=== PATIENT | female | born 1990 | race Caucasian/White ===

== ENCOUNTER 2022-10-02 15:07 | Observation (INO) | payer OTHER, SELFPAY ==
[2022-10-02 15:23] VITALS: BP 122/70; PULSE 81; TEMP 36.3
[2022-10-02 15:53] LABS: Bilirubin Urine NEGATIVE (NEGATIVE); Blood Urine NEGATIVE (NEGATIVE); Clarity Urine CLEAR (CLEAR); Color Urine YELLOW (YELLOW); Glucose Urine UA NEGATIVE (NEGATIVE); Ketones Urine NEGATIVE (NEGATIVE); Leukocyte Esterase Urine TRACE (NEGATIVE); Nitrite Urine NEGATIVE (NEGATIVE); Protein Urine TRACE mg/dL (NEG/TRACE); Specific Gravity Urine 1.015 (1.005-1.025); Urobilinogen Urine 0.2 EU/dL (0.2-1.0); pH Urine 8.5 (5.0-9.0)
[2022-10-02 15:54] LABS: Urine Microscopic Indicated YES
[2022-10-02 16:06] LABS: Amorphous Sediment Urine FEW; Bacteria Urine TRACE #/HPF (NONE SEEN); Cast Seen? NONE SEEN #/LPF (NONE SEEN); Crystals Seen? None Seen #/HPF (None Seen); Mucus Urine NONE SEEN (NONE SEEN); RBC Urine 0-2 #/HPF (0-2); Squamous Epithelial Cell Urine FEW #/LPF (NONE/RARE); Urine Culture Indicated NO
--- NOTE | 2022-10-02 18:17 | PC.NURSE ---
Rima Dewitt in to see pt. SVE unchanged. d/c orders received. D/c instructions given to pt and . s/s of labor given. verbalizes understanding. d/c to home
== END 2022-10-02 17:30 | disposition home or self-care (01) ==
PROVIDERS: Admitting Provider Midwife; PCP Midwife; Visit Provider Midwife
DX: O47.9 False labor, unspecified (principal); O26.899 Other specified pregnancy related conditions, unspecified trimester; R11.0 Nausea; Z3A.00 Weeks of gestation of pregnancy not specified
CPT/HCPCS: 81001; 81003; G0378; G0379

== ENCOUNTER 2022-10-05 13:35 | Observation (INO) | payer OTHER, SELFPAY ==
[2022-10-05 13:52] VITALS: TEMP 36.4
[2022-10-05 13:53] VITALS: BP 111/56; PULSE 71
[2022-10-05 14:16] LABS: Amnisure NEGATIVE (NEGATIVE)
[2022-10-05 14:20] LABS: Bilirubin Urine NEGATIVE (NEGATIVE); Blood Urine NEGATIVE (NEGATIVE); Clarity Urine CLEAR (CLEAR); Color Urine YELLOW (YELLOW); Glucose Urine UA NEGATIVE (NEGATIVE); Ketones Urine NEGATIVE (NEGATIVE); Leukocyte Esterase Urine NEGATIVE (NEGATIVE); Nitrite Urine NEGATIVE (NEGATIVE); Protein Urine TRACE mg/dL (NEG/TRACE); Specific Gravity Urine 1.015 (1.005-1.025)
[2022-10-05 14:24] LABS: Urine Microscopic Indicated NO
== END 2022-10-05 14:40 | disposition home or self-care (01) ==
PROVIDERS: Admitting Provider Midwife; Visit Provider Midwife
DX: Z03.71 Encounter for suspected problem with amniotic cavity and membrane ruled out (principal); O36.8190 Decreased fetal movements, unspecified trimester, not applicable or unspecified; O47.9 False labor, unspecified; Z3A.00 Weeks of gestation of pregnancy not specified
CPT/HCPCS: 59025; 81003; 84112; G0378; G0379

== ENCOUNTER 2022-10-07 12:02 | Inpatient (IN) | payer OTHER, SELFPAY ==
[2022-10-07] VITALS (55 sets, daily range): BP systolic 99–135; BP diastolic 58–83; PULSE 54–86; RESP 16; TEMP 36.4–36.8
[2022-10-07 12:43] LABS: Hematocrit 40.5 % (36.0-48.0); Mean Corpuscular HGB Conc 34.6 g/dL (29.9-35.2); Mean Corpuscular Hemoglobin 31.4 pg (26.7-34.0); Mean Corpuscular Volume 90.8 fL (81.0-99.0); Mean Platelet Volume 9.7 fL (9.5-13.5); Platelet Count 376 10^3/uL (150-450); Red Blood Count 4.46 10^6/uL (4.20-5.40); Red Cell Distribution Width 13.3 % (11.0-15.0)
[2022-10-07 12:53] LABS: Cannabinoid Screen Urine POSITIVE (NEGATIVE)
[2022-10-07 12:54] LABS: Amphetamine Screen Urine NEGATIVE (NEGATIVE); Barbiturates Screen Urine NEGATIVE (NEGATIVE); Benzodiazepines Screen Urine NEGATIVE (NEGATIVE); Buprenorphine Screen Urine NEGATIVE (NEGATIVE); Cocaine Screen Urine NEGATIVE (NEGATIVE); Methadone Screen Urine NEGATIVE (NEGATIVE); Methamphetamines Screen Urine NEGATIVE (NEGATIVE); Opiate Screen Urine NEGATIVE (NEGATIVE); Oxycodone Screen Urine NEGATIVE (NEGATIVE); Phencyclidine Screen Urine NEGATIVE (NEGATIVE); Tricyclic Antidepressant Urine NEGATIVE (NEGATIVE)
[2022-10-07] MEDS: 0.9 % SODIUM CHLORIDE 1,000 ML 125 ML IV (13:16)
[2022-10-07] MEDS: LIDOCAINE HCL 2% PF 100 MG/5 ML VIAL INJ (13:17)
[2022-10-07] MEDS: LIDOCAINE HCL 1% 200 MG/20 ML MDV INJ (13:18)
[2022-10-07] MEDS: ROPIVACAINE HCL/PF 400 MG/200 ML PREMIX 200 MG EPIDURAL (13:19)
[2022-10-07] MEDS: 0.9 % SODIUM CHLORIDE 1,000 ML 1000 ML IV (13:23)
--- NOTE | 2022-10-07 13:24 | PM.OBHP ---
OB - H&P: HPI History of Present Illness Chief complaint: LABOR : 6 Para: 2 Date of last menstrual period: 12/14/21 Gestational age based on last menstrual period: 38.1 History of Present Dating criteria: LMP confirmed by 1st trimester US care: good care Ultrasounds: normal 1st trimester US and normal mid trimester US Narrative: tobacco abuse, marijuana abuse Labs Blood type: O (+) positive Rubella: immune RPR/VDLR: nonreactive GBS status: negative HBsAG: negative Review of Systems ROS Status of ROS 10 or more systems reviewed and unremarkable except as noted in history and below Meds Home Medications and Allergies Allergies Allergy/AdvReac Type Severity Reaction Status Date / Time No Known Drug Allergies Allergy Verified 10/02/22 15:37 Exam Constitutional Vital Signs, click to edit/add: Last Vital Signs Temp 97.5 F L 10/07/22 12:27 Pulse 70 10/07/22 13:22 BP 110/70 10/07/22 13:22 Documenting provider has reviewed patient's vital signs: yes Common normals: no apparent distress General appearance: cooperative Orientation/consciousness: Yes awake, Yes oriented to person, Yes oriented to place and Yes oriented to time HENMT Common normals: normocephalic Lymph Lymphatic: no lymphadenopathy noted Chest Common normals: inspection of chest normal Respiratory Common normals: normal respiratory effort Effort & inspection: able to speak in complete sentences Cardio Common normals: regular rate and regular rhythm Rate: regular rate Rhythm: regular rhythm GI Common normals: Normal to inspection, nondistended, normoactive bowel sounds present and non-tender Auscultation: normoactive bowel sounds Palpation: soft, firm and tender Common normals: no CVA tenderness Back & Pelvis Common normals: no CVA tenderness Extremity Common normals: normal to inspection Neuro Common normals: oriented x3 Sensorium/orientation: awake, alert, oriented to person, oriented to place and oriented to time Psych Speech: normal speech Results Labs Labs: Short CBC 10/07/22 Range/Units 12:36 WBC 14.0 H (4.0-11.0) 10^3/uL Hgb 14.0 (12.0-16.0) g/dL Hct 40.5 (36.0-48.0) % Plt Count 376 (150-450) 10^3/uL OB - A/P Assessment and Plan (1) Term : Plan routine labor orders, epidural if patient desires, AROM for augmentation if needed Anticipate
[2022-10-07] MEDS: OXYTOCIN 10 UNIT in 0.9 % SODIUM CHLORIDE 500 ML 6.012 UNIT IV (16:30)
--- NOTE | 2022-10-07 17:50 | PM.OBPRCVD ---
Procedure Procedure: Intrapartal events: None Induction method: none Delivery augmentation: rupture of membranes and pitocin Delivery monitor: external FHT and external uterine Route of delivery: Laceration description: none Estimated blood loss (mL): 200 Anesthesia type: Epidural Disposition: floor Complications: umbilical cord avulsion occurred with pushing. Baby had CAN x1 very tight, I could not reduce it, and when patient pushed the cord avulsed. I immediately clamped the baby's cord and then clamped cord attached to placenta on mom. Bleeding stopped with clamping on both mom and baby. Baby has tone, crying and HR greater than 100. to moms abd for skin to skin. Delivery date: 10/07/22 Gender: female presentation: vertex heart rate - 1 minute: 100 bpm or Greater respiratory effort - 1 minute: Spontaneous/Strong Cry muscle tone - 1 minute: Active Movement reflex response - 1 minute: Prompt Response color - 1 minute: Bluish Hands or Feet total score - 1 minute: 9 heart rate - 5 minute: 100 bpm or Greater respiratory effort - 5 minute: Spontaneous/Strong Cry muscle tone - 5 minute: Active Movement reflex response - 5 minute: Prompt Response color - 5 minute: Bluish Hands or Feet total score - 5 minute: 9
[2022-10-07] MEDS: IBUPROFEN 400 MG TABLET 800 MG PO (20:05)
[2022-10-08] VITALS: BP 135/66; PULSE 60; RESP 16; TEMP 36.7
[2022-10-08 08:09] LABS: Basophils Percent Auto 0.2 % (0.2-2.0); Eosinophils Absolute Auto 0.1 10^3/uL (0.0-0.7); Eosinophils Percent Auto 0.7 % (0.9-7.0); Hematocrit 36.4 % (36.0-48.0); Hemoglobin 12.3 g/dL (12.0-16.0); Immature Granulocytes Abs Auto 0.06 10^3/uL (0.00-0.03); Immature Granulocytes Pct Auto 0.4 % (0.0-0.5); Lymphocytes Absolute Auto 2.9 10^3/uL (1.2-3.8); Lymphocytes Percent Auto 21.9 % (20.5-60.0); Mean Corpuscular HGB Conc 33.8 g/dL (29.9-35.2); Mean Corpuscular Hemoglobin 30.8 pg (26.7-34.0); Mean Platelet Volume 9.8 fL (9.5-13.5); Monocytes Absolute Auto 0.9 10^3/uL (0.3-0.8); Monocytes Percent Auto 6.4 % (1.7-12.0); Neutrophils Absolute Auto 9.4 10^3/uL (1.4-6.5); Neutrophils Percent Auto 70.4 % (43.0-75.0); Platelet Count 314 10^3/uL (150-450); Red Cell Distribution Width 13.3 % (11.0-15.0); White Blood Count 13.4 10^3/uL (4.0-11.0)
[2022-10-08 09:50] VITALS: RESP 18
[2022-10-08] MEDS: DOCUSATE SODIUM 100 MG CAPSULE PO (09:50)
[2022-10-08] MEDS: IBUPROFEN 400 MG TABLET 800 MG PO (09:50)
[2022-10-08 09:52] VITALS: BP 133/66; PULSE 61
--- NOTE | 2022-10-08 10:26 | SWNOTE1 ---
SW consulted due to positive drug screen on admissions for THC. SW spoke with nursing prior to going into room and pt/father of baby bonding with baby, no other concerns except marijuana. SW spoke with pt and father of baby. This is their 3rd child, 2 other daughters in the home. They are 3 and 4 years old. Pt and father of baby have everything they need at home for baby. Pt is breast feeding and it is going well. Pt and father of baby appropriate with baby. They have a good support system within the families as well. Pt does admit to eating edibles or smoking a bowl as needed during due to sickness/nausea. She voiced she lost 30 pounds throughout and only gained one pound at the end. She did attempt Zofran medication, but even that did not help. She voiced it was the only way to eat anything. Pt voiced she used to have medical marijuana card, but not anymore. Educated to not smoke around children. SW also let them know as a mandated reported, SW has to call and make a report to CPS. They did voice understanding. No questions at this time. Report called to [facility] CPS, HIPPA form filled out and sent to Teri.
--- NOTE | 2022-10-08 13:24 | PM.OBDS ---
DS: Providers Provider Date of admission: 10/07/22 12:20 Primary care physician: Non-Staff Physician, Admitting clinician: GRAY WARNER Consults: 10/07/22 16:49 Consult to Automated Teller Manager Routine Reason for consult:: Drug Abuse Attending physician on discharge: Hina Ramirez DS: Diagnosis Discharge Diagnosis (1) Term : Assessment and plan: S/P UNCOMPLICATED VAGINAL DELIVERY WITHOUT PERINEAL REPAIR. BREAST FEEDING. MULTIP. CLINICAL EXAM NONFOCAL. VSS AND AFEBRILE. REQUESTING DISCHARGE. Plan DISCHARGE HOME OB - DS: Summary Hospital Course Hospital Course: UNCOMPLICATED Time spent discussing smoking cessation with patient: 3 to 10 minutes Peripartum Data - Vaginal Delivery Laceration description: none Complications complications: none Infant Delivery method: spontaneous vaginal delivery Gender: female Discharge plan: home Status at Discharge Functional status at discharge: independent ambulation Overall status at discharge: patient is back to baseline Time Spent with Patient Time attestation: Total time spent providing and/or coordinating discharge services: Time spent: less than 30 minutes Exam Constitutional Vital Signs, click to edit/add: Last Vital Signs Temp 98.1 F 10/08/22 00:00 Pulse 61 10/08/22 09:52 Resp 18 10/08/22 09:50 BP 133/66 10/08/22 09:52 O2 Del Method Room Air 10/08/22 00:00 Documenting provider has reviewed patient's vital signs: yes Common normals: no apparent distress, oriented x3, no limitations, healthy appearing, alert and well nourished General appearance: cooperative and comfortable Orientation/consciousness: Yes awake, Yes oriented to person, Yes oriented to place and Yes oriented to time HENMT Common normals: normocephalic and head/scalp atraumatic Eye Common normals: PERRL Pupil: accommodation reflex normal Neck & C-Spine Common normals: full ROM and supple Respiratory Common normals: normal respiratory effort Cardio Common normals: regular rate and regular rhythm Common normals: no CVA tenderness Extremity Common normals: normal to inspection and full ROM Neuro Common normals: CN's II-XII intact bilaterally, moves all extremities, no focal motor deficits and no sensory deficits noted Motor exam: strength 5/5 throughout Psych Common normals: mental status grossly normal, thought process normal, cooperative and affect normal DS: Data Data Completed and Pending Labs on day of discharge: Labs from last 24 hours 10/08/22 10/07/22 07:53 12:36 WBC 13.4 H RBC 4.00 L Hgb 12.3 Hct 36.4 MCV 91.0 MCH 30.8 MCHC 33.8 RDW 13.3 Plt Count 314 MPV 9.8 Neut % (Auto) 70.4 Lymph % (Auto) 21.9 Rhea % (Auto) 6.4 Eos % (Auto) 0.7 L Baso % (Auto) 0.2 Neut # (Auto) 9.4 H Lymph # (Auto) 2.9 Rhea # (Auto) 0.9 H Eos # (Auto) 0.1 Baso # (Auto) 0.0 Abs Immat Gran (auto) 0.06 H Imm/Tot Granulo (auto) 0.4 Blood Type O Positive Antibody Screen Negative Discharge Plan Discharge Disposition: Home, Self-Care Condition: Good Assessment: NORMAL COURSE. REQUESTING DISCHARGE. IS A MULTIP AND . VOICING NO COMPLAINTS. REQUESTING NO PRESCRIPTIONS FOR PAIN. VITAL SIGNS NORMAL. HEMOGLOBIN ACCEPTABLE FOR DISCHARGE. CLINICAL EXAM NONFOCAL. Health Concerns: NONE Plan of Treatment: DISCHARGE HOME Patient Instructions: Vaginal Delivery (DC), COVID-19 and (GEN) Activity Restrictions/Additional Instructions: PELVIC REST SIX WEEKS, SPORTS BRA 22/09 IF DECIDES TO STOP BREAST FEEDING AND NO STIMULATION TO BREAST AT THAT POINT, NO SWIMMING, NO BATHTUB BUT MAY SHOWER FOR SIX WEEKS, FOLLOW UP WITH GABRIELLA IN SIX WEEKS, BABY TO PEDS WITHIN ONE WEEK, NO SCRIPTS NEEDED, ROUTINE WRITTEN INSTRUCTIONS GIVEN, CALL FOR PROBLEM OR CONCERN Forms: Portal Instructions Discharge location: HOME
--- NOTE | 2022-10-08 14:05 | PC.NURSE ---
LC into room, mother holding baby. States BF going well and has no concerns at this time. Open to discussion and educational material . Given BF folder with handouts and discussion, Suckle, Sleep Thrive book and information on marijuana use and . Also covers effects for infant development. Verbalized understanding.
[2022-10-08 17:09] VITALS: BP 130/79; PULSE 60
== END 2022-10-08 19:10 | disposition home or self-care (01) | DRG 560 ==
PROVIDERS: Admitting Provider Midwife; Visit Provider Obstetrics & Gynecology
DX: O99.334 Smoking (tobacco) complicating childbirth (principal); O99.324 Drug use complicating childbirth; F12.10 Cannabis abuse, uncomplicated; O69.1XX0 Labor and delivery complicated by cord around neck, with compression, not applicable or unspecified; O69.89X0 Labor and delivery complicated by other cord complications, not applicable or unspecified; Z37.0 Single live birth; Z3A.38 38 weeks gestation of pregnancy; F17.200 Nicotine dependence, unspecified, uncomplicated
CPT/HCPCS: 36415; 51702; 59025; 59050; 59410; 80307; 81003; 84112; 85025; 85027; 86850; 86900; 86901; 88307; 96374; G0378; G0379